=== PATIENT | female | born 1985 | race Caucasian/White ===

== ENCOUNTER 2017-07-31 20:41 | Emergency (ER) | payer MEDICAID ==
[2017-07-31] MEDS ORDERED: Sodium Chloride 0.9% 1,000 ML IV ONE (20:57)
[2017-07-31] MEDS ORDERED: Ondansetron 4 MG/2 ML SDV IVPUSH ONE (20:58)
[2017-07-31] MEDS ORDERED: Ketorolac 30 MG/ML SDV IVPUSH ONE (21:22)
[2017-07-31] MEDS ORDERED: Dextrose 5%-Lactated Ringers 1,000 ML IV SCH (22:30)
[2017-08-01 04:44] VITALS: BP 118/86
--- NOTE | 2017-08-02 10:24 | ER ---
DATE SEEN: 07/31/2017 TIME SEEN: The patient was seen at 2047 hours. HISTORY OF PRESENT ILLNESS: This 32-year-old, 4, para 4-0-0-4 woman, comes in with onset of abdominal pain, this was so severe at 1800 hours, she stopped driving her car and paramedics picked her up and brought into the hospital. She has left lower quadrant discomfort. Last menstrual period indeterminate. She felt slightly dizzy, felt she could not carry on because of the abdominal pain. She had nausea. She was able to get up and get out of the vehicle. She denied fever, chills, vomiting, diarrhea, constipation. She had extensive alcohol "too much" last night, six to eight beers. She has a slight headache. No shortness of breath. No chest pain or irregular heartbeat. No nausea, vomiting, diarrhea, constipation, change in bowels. No difficulty passing urine. No muscle aches. No previous history of seizure disorder. PAST MEDICAL HISTORY: None. PAST SURGICAL HISTORY: None. ALLERGIES: Sulfa. MEDICATIONS: None. PHYSICAL EXAMINATION: CONSTITUTIONAL: The patient is appropriately dressed. No shortness of breath. No anxiety. Apprehensive. She does not look like she is having much distress. HEENT: PERRLA intact. Eyegrounds normal. Pharynx has semi-dry mucosa. Nares negative. NECK: No cervical adenopathy or thyromegaly. No neck stiffness. LUNGS: Clear to auscultation without rales, rhonchi, or wheezes. HEART: S1, S2. No murmur. ABDOMEN: Soft. No guarding. No abdominal discomfort. Moderate left flank discomfort with percussion. No spinous process tenderness. No inguinal abnormalities. No hernia noted. PELVIC: Not performed. EXTREMITIES: Lower extremities without edema. Deep tendon reflexes normal. Upper extremities and lower extremity strength normal and intact. NEURO: Cranial nerves 2 through 12 intact. IMAGING: CAT scan was negative for abnormality. She has an IUD in utero. No obstructive stones, hydronephrosis, or perinephric edema. No small bowel or colonic obstruction. IUD is within the uterus. Normal CAT scan. LABORATORY DATA: Laboratory values are all normal. White count is 9000 with PMNs 62, lymphocytes 24, monos 6, and eosinophils 6, platelets 221,000, hemoglobin 13.7. Automated chemistry is normal with slight dehydration. BUN and creatinine ratio 25, creatinine 0.6, BUN 15, and also glucose stress reaction slight elevation 138. Urinalysis normal with few bacteria and few rbc's. Negative test. ASSESSMENT: Abdominal pain. PLAN: The patient reassured. No evidence for torsion of the ovary. No evidence for ovarian mass or ruptured cyst or renal stone or perforation or bowel obstruction. The patient to gradually progressively increase diet as tolerated. She received a liter of normal saline and a liter of D5 lactated Ringer's and felt better, sent home. Follow up with doctor as needed, otherwise return in 7 to 10 days. Use plain ibuprofen/Tylenol for pain and discomfort. The patient's pain presently is gone. /[id number] SENA/MALACHI
== END 2017-07-31 23:29 | disposition home or self-care (01) ==
LOC: FB.ED 20:41
DX: R10.32 Left lower quadrant pain (principal); Z88.2 Allergy status to sulfonamides
CPT/HCPCS: 36415; 74176; 80053; 81001; 81025; 85025; 96361; 96374; 96375; 99284; J1885; J2405; J7040; J7042

== ENCOUNTER 2017-10-10 02:40 | Emergency (ER) | payer MEDICAID ==
[2017-10-10] MEDS ORDERED: Ketorolac 60 MG/2 ML SDV IM ONE (02:52)
[2017-10-10 03:44] VITALS: BP 129/86
--- NOTE | 2017-10-10 04:08 | EDM.PDOC ---
ED HPI GENERAL MEDICAL PROBLEM - General Chief Complaint: Chest Pain Stated Complaint: CHEST PAIN Time Seen by Provider: 10/10/17 03:43 Source of Information: Reports: Patient History Limitations: Reports: No Limitations - History of Present Illness INITIAL COMMENTS - FREE TEXT/NARRATIVE: 32 y.o.w.f came to the ed due to r shoulder pain and feeling dehydrated 1 day after drinking ETOH heavily. Pt stated, last time when she drank, she came to the ed and received NS and she felt better. Pt stated she is able to keep water down. Pt denied sleeping at her r should. She just work up with severe pain and thought she will . No trauma, no other acute medical issues. BP 129/86 pulse 78 RR 14 Pulse ox 98% temp 37.2 Onset Date: 10/08/17 Onset Time: 07:00 Duration: Day(s): Location: Reports: Abdomen, Upper Extremity, Right Quality: Reports: Ache, Dull, Same as Previous Episode Severity: Mild Improves with: Reports: Rest Worsens with: Reports: Movement Context: Reports: Other (was drinking yesterday, today r shoulder pain) Associated Symptoms: Reports: No Other Symptoms Right Chest Pain Score (Numeric/FACES): 6 Right Shoulder Pain Score (Numeric/FACES): 6 Abdomen Pain Score (Numeric/FACES): 6 - Related Data Allergies Allergy/AdvReac Type Severity Reaction Status Date / Time Sulfa (Sulfonamide Allergy Cannot Verified 10/10/17 03:39 Antibiotics) Remember Home Meds: Home Meds Ondansetron [Zofran ODT] 8 mg PO Q6H PRN #20 tab.dis 10/10/17 [Rx] 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: Neurological History: Reports: Concussion, Headaches, Chronic, Head Trauma Other Neuro History: 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 Psychiatric History: Reports: Addiction, Anxiety, Depression, Emotional Problems , PTSD, Other (See Below) - Past Surgical History HEENT Surgical History: Reports: Tonsillectomy Social & Family History - Family History Family Medical History: Noncontributory - Tobacco Use Smoking Status *Q: Current Every Day Smoker Years of Tobacco use: 3 Packs/Tins Daily: 0.5 Second Hand Smoke Exposure: Yes - Caffeine Use Caffeine Use: Reports: Coffee, Soda - Alcohol Use Days Per Week of Alcohol Use: 5 Number of Drinks Per Day: 3 Total Drinks Per Week: 15 - Recreational Drug Use Recreational Drug Use: No Recreational Drug Type: Reports: Methamphetamine ED ROS GENERAL - Review of Systems Review Of Systems: See Below Constitutional: Reports: No Symptoms HEENT: Reports: No Symptoms Respiratory: Reports: No Symptoms Cardiovascular: Reports: No Symptoms Endocrine: Reports: No Symptoms GI/Abdominal: Reports: No Symptoms : Reports: No Symptoms Musculoskeletal: Reports: No Symptoms Skin: Reports: No Symptoms Neurological: Reports: No Symptoms Psychiatric: Reports: No Symptoms Hematologic/Lymphatic: Reports: No Symptoms Immunologic: Reports: No Symptoms ED EXAM, GENERAL - Physical Exam Exam: See Below Exam Limited By: No Limitations General Appearance: Alert, WD/WN, Mild Distress Eye Exam: Bilateral Eye: Normal Inspection Ears: Normal External Exam Ear Exam: Bilateral Ear: Auricle Normal Nose: Normal Inspection, Normal Mucosa, No Blood Throat/Mouth: Normal Inspection, Normal Lips Head: Atraumatic, Normocephalic Neck: Normal Inspection, Supple, Non-Tender, Full Range of Motion Respiratory/Chest: No Respiratory Distress, Lungs Clear, Normal Breath Sounds Cardiovascular: Normal Peripheral Pulses, Regular Rate, Rhythm, No Edema GI/Abdominal: Normal Bowel Sounds, Tender (minor epigastric tenderness) (Female) Exam: Deferred Rectal (Female) Exam: Deferred Back Exam: Normal Inspection, Full Range of Motion Extremities: Normal Inspection, Normal Range of Motion, Non-Tender Neurological: Alert, Oriented, CN II-XII Intact, Normal Cognition, Normal Gait Psychiatric: Normal Affect, Normal Mood Skin Exam: Warm, Dry, Intact, Normal Color, No Rash Lymphatic: No Adenopathy EKG INTERPRETATION EKG Date: 10/10/17 Time: 02:50 Rhythm: NSR Rate (Beats/Min): 77 [place]: Normal P-Wave: Present QRS: Normal ST-T: Normal QT: Normal Comparison: NA - No Prior EKG Course - Vital Signs Text/Narrative:: 32 y.o.w.f came to the ed due to r shoulder pain and feeling dehydrated 1 day after drinking ETOH heavily. Pt stated, last time when she drank, she came to the ed and received NS and she felt better. Pt stated she is able to keep water down. Pt denied sleeping at her r should. She just work up with severe pain and thought she will . No trauma, no other acute medical issues. BP 129/86 pulse 78 RR 14 Pulse ox 98% temp 37.2 PE: WNWD WF NAD, mild epig. tenderness, FROM of right shoulder. Imaging: Left shoulder: NAD Impression: R shoulder sprain and mild ETOH gasytritis TX; Zofran Reexam: Pt was able to keep water down. Plan: D/C with instructions Last Recorded V/S: Last Vital Signs Temp 37.2 C 10/10/17 03:43 Pulse 86 10/10/17 03:43 Resp 14 10/10/17 03:43 BP 129/86 10/10/17 03:43 Pulse Ox 98 10/10/17 03:43 - Orders/Labs/Meds Orders: Active Orders 24 hr Category Date Time Status EKG Documentation Completion [RC] ASDIRECTED Care 10/10/17 03:47 Active Shoulder 1V Rt [CR] Stat Exams 10/10/17 03:20 Taken EKG 12 Lead [EK] Routine Ther 10/10/17 03:47 Ordered Meds: Medications Discontinued Medications Generic Name Dose Route Start Last Admin Trade Name Freq PRN Reason Stop Dose Admin Ketorolac Tromethamine 60 mg 10/10/17 02:52 10/10/17 03:46 Toradol IM 10/10/17 02:53 60 mg ONETIME ONE Administration Ondansetron HCl 8 mg 10/10/17 04:09 10/10/17 04:12 Zofran Odt PO 10/10/17 04:10 8 mg ONETIME ONE Administration Departure - Departure Time of Disposition: 04:06 Disposition: Home, Self-Care 01 Condition: Good Clinical Impression: H/O ETOH abuse Shoulder sprain Qualifiers: Encounter type: initial encounter Shoulder sprain type: unspecified sprain Laterality: right Qualified Code(s): S43.401A - Unspecified sprain of right shoulder joint, initial encounter Prescriptions: Ondansetron [Zofran ODT] 8 mg PO Q6H PRN #20 tab.dis PRN Reason: for nausea and vomiting Referrals: PCP,None [Primary Care Provider] - Forms: ED Department Discharge Additional Instructions: Please advance diet as toerated, please take zofran for nausea and vomiting. Please no ETOH, please f/u, come back if your symptoms get worse acutely - My Orders Last 24 Hours: My Active Orders 10/10/17 03:20 Shoulder 1V Rt [CR] Stat 10/10/17 03:47 EKG Documentation Completion [RC] ASDIRECTED EKG 12 Lead [EK] Routine - Assessment/Plan Last 24 Hours: My Active Orders 10/10/17 03:20 Shoulder 1V Rt [CR] Stat 10/10/17 03:47 EKG Documentation Completion [RC] ASDIRECTED EKG 12 Lead [EK] Routine
[2017-10-10] MEDS ORDERED: Ondansetron 8 MG Tab.DIS PO ONE (04:09)
--- NOTE | 2017-10-10 10:35 | CR ---
INDICATION: Right shoulder pain. RIGHT SHOULDER: Three views of the right shoulder revealed slight cranial offset of the distal clavicle with respect to the acromion, suggesting the possibility of a grade 1 AC joint strain. This should be correlated clinically. No other bone or joint abnormality was identified - no acute fracture site was seen. IMPRESSION: Findings suggest a grade 1 AC joint separation on the right. Views of both AC joints without and with weights may be helpful for further evaluation, as felt to be clinically necessary. ISAURAD
== END 2017-10-10 04:30 | disposition home or self-care (01) ==
LOC: FB.ED 02:40
DX: S43.401A Unspecified sprain of right shoulder joint, initial encounter (principal); K29.20 Alcoholic gastritis without bleeding; F10.10 Alcohol abuse, uncomplicated; F17.210 Nicotine dependence, cigarettes, uncomplicated; Z88.2 Allergy status to sulfonamides; X58.XXXA Exposure to other specified factors, initial encounter
CPT/HCPCS: 73030; 93005; 96372; 99284; A9270; J1885

== ENCOUNTER 2018-01-20 07:51 | Emergency (ER) | payer MEDICAID ==
--- NOTE | 2018-01-20 10:20 | EDM.PDOC ---
ED HPI GENERAL MEDICAL PROBLEM - General Chief Complaint: Upper Extremity Injury/Pain Stated Complaint: NUMBNESS,TINGLING,WEAKNESS Time Seen by Provider: 01/20/18 07:51 Source of Information: Reports: Patient, Family (boyfriend) History Limitations: Reports: No Limitations - History of Present Illness INITIAL COMMENTS - FREE TEXT/NARRATIVE: 32 y.o.w.f came to the ed with her SO due to left forearm numbness when she woke up this morning. Pt denies trauma. She has a h/O ETOH abuse but denies sleeping on her left arm. No N/V/D Pt says she feels dizzy at time. Pt was seen for that on 10/31/2017 at [place] and twice by Dr. Guardado in October. Pt stated, she had 2 stenst placed in her heart at age 18 at [facility]. No other acute medical Issues. BP 146/102 RR 20 Pulse 83 Pulse ox not done by nurse. Temp 36.8 Onset: Today Onset Date: 01/20/18 Onset Time: 07:00 Duration: Minutes: Location: Reports: Upper Extremity, Left Quality: Reports: Other (numb) Severity: Mild Improves with: Reports: None Worsens with: Reports: None Associated Symptoms: Reports: No Other Symptoms Left Posterior Back Pain Score (Numeric/FACES): 5 - Related Data Allergies Allergy/AdvReac Type Severity Reaction Status Date / Time Sulfa (Sulfonamide Allergy Cannot Verified 01/20/18 08:30 Antibiotics) Remember Home Meds: Home Meds PARoxetine HCl [Paxil] 20 mg PO DAILY 01/20/18 [History] hydrOXYzine HCl [Atarax] 25 mg PO QID 01/20/18 [History] 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: Neurological History: Reports: Concussion, Headaches, Chronic, Head Trauma Other Neuro History: 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 Psychiatric History: Reports: Addiction, Anxiety, Depression, Emotional Problems , PTSD, Other (See Below) - Past Surgical History HEENT Surgical History: Reports: Tonsillectomy Social & Family History - Family History Family Medical History: Noncontributory - Tobacco Use Smoking Status *Q: Current Every Day Smoker Years of Tobacco use: 3 Packs/Tins Daily: 0.5 Second Hand Smoke Exposure: Yes - Caffeine Use Caffeine Use: Reports: Coffee, Soda - Alcohol Use Days Per Week of Alcohol Use: 5 Number of Drinks Per Day: 3 Total Drinks Per Week: 15 - Recreational Drug Use Recreational Drug Use: No Recreational Drug Type: Reports: Methamphetamine Review of Systems - Review of Systems Review Of Systems: See Below Constitutional: Reports: No Symptoms Eyes: Reports: No Symptoms Ears: Reports: No Symptoms Nose: Reports: No Symptoms Mouth/Throat: Reports: No Symptoms Respiratory: Reports: No Symptoms Cardiovascular: Reports: No Symptoms (said she had cardiac stenst placed with age 18 at [facility]) GI/Abdominal: Reports: No Symptoms Genitourinary: Reports: No Symptoms Musculoskeletal: Reports: No Symptoms Skin: Reports: No Symptoms Neurological: Reports: Dizziness, Numbness (left forearm), Paresthesia (left forearm) Psychiatric: Reports: No Symptoms ED EXAM, GENERAL - Physical Exam Exam: See Below Exam Limited By: No Limitations General Appearance: Alert, WD/WN, No Apparent Distress Eye Exam: Bilateral Eye: Normal Inspection Ear Exam: Bilateral Ear: Auricle Normal Nose: Normal Inspection, Normal Mucosa Throat/Mouth: Normal Inspection, Normal Lips Head: Atraumatic, Normocephalic Neck: Normal Inspection, Supple, Non-Tender, Full Range of Motion Respiratory/Chest: No Respiratory Distress, Lungs Clear, Normal Breath Sounds, No Accessory Muscle Use, Chest Non-Tender Cardiovascular: Normal Peripheral Pulses, Regular Rate, Rhythm, No Edema, No Gallop, No Murmur, No Rub Peripheral Pulses: 1+: Brachial (R) GI/Abdominal: Normal Bowel Sounds, Soft, Non-Tender, No Organomegaly, No Distention, No Abnormal Bruit, No Mass (Female) Exam: Deferred Rectal (Female) Exam: Deferred Back Exam: Normal Inspection, Full Range of Motion Extremities: Normal Inspection, Normal Range of Motion, Non-Tender, No Pedal Edema, Normal Capillary Refill Neurological: Alert, Oriented, CN II-XII Intact, Normal Cognition, Normal Gait, No Motor/Sensory Deficits Psychiatric: Normal Affect, Normal Mood Skin Exam: Warm, Dry, Intact, Normal Color Course - Vital Signs Text/Narrative:: 32 y.o.w.f came to the ed with her SO due to left forearm numbness when she woke up this morning. Pt denies trauma. She has a h/O ETOH abuse but denies sleeping on her left arm. No N/V/D Pt says she feels dizzy at time. Pt was seen for that on 10/31/2017 at [place] and twice by Dr. Guardado in October. Pt stated, she had 2 stents placed in her heart at age 18 at [facility]. No other acute medical Issues. BP 146/102 RR 20 Pulse 83 Pulse ox not done by nurse. Temp 36.8 PE: WNWD W F with left forearm numbness, FROM, no pain Labs: CBC BMP and UA were neg, ETOH was neg Impression: Left arm numbness/Neuropraxia, Dizziness, H/O ETOH abuse, H/O anxiety Pt stated she had with age 18 stents in her heart placed at [facility]. I have spoken to [facility] records and received toe pt's D/C constantin from 06/16/2008, which did not mention ant kind of heart procedure. She was seen on 10/31/2017 at the [place] ED, and twice at Dr. Ribeiro's office in October 2017. Non of the records mentioned a heart issue. After the patient was informed about taht fact, she walked out of the ed. Plan: Pt left AMA from the ed Pulse ox not dawkins by nurse while pt was in the ed. Last Recorded V/S: Last Vital Signs Temp 36.5 C 01/20/18 07:51 Pulse 76 01/20/18 08:50 Resp 20 01/20/18 07:51 BP 142/96 H 01/20/18 08:50 Pulse Ox Orthostatic Blood Pressure [ 140/97 Standing] Orthostatic Blood Pressure [ 150/99 Sitting] Orthostatic Blood Pressure [ 140/93 Supine] - Orders/Labs/Meds Orders: Active Orders 24 hr Category Date Time Status UA W/MICROSCOPIC [URIN] Stat Lab 01/20/18 08:24 Ordered Labs: Laboratory Tests 01/20/18 01/20/18 01/20/18 Range/Units 08:24 08:24 08:24 WBC 6.7 (4.5-12.0) X10-3/uL RBC 4.25 (3.23-5.20) x10(6)uL Hgb 13.5 (11.5-15.5) g/dL Hct 39.9 (30.0-51.3) % MCV 94.0 (80-96) fL MCH 31.8 (27.7-33.6) pg MCHC 33.8 (32.2-35.4) g/dL RDW 13.3 (11.5-15.5) % Plt Count 214 (125-369) X10(3)uL MPV 8.7 (7.4-10.4) fL Neut % (Auto) 55.5 (46-82) % Lymph % (Auto) 33.7 (13-37) % [place] % (Auto) 5.3 (4-12) % Eos % (Auto) 5 (1.0-5.0) % Baso % (Auto) 1 (0-2) % Neut # (Auto) 3.7 (1.6-8.3) # Lymph # (Auto) 2.3 (0.6-5.0) # [place] # (Auto) 0.4 (0.0-1.3) # Eos # (Auto) 0.3 (0.0-0.8) # Baso # (Auto) 0.0 (0.0-0.2) # PT 10.0 (8.7-11.1) INR 0.99 (0.89-1.13) D-Dimer, Quantitative (100-400) ng/mL Sodium (135-145) mmol/L Potassium (3.5-5.3) mmol/L Chloride (100-110) mmol/L Carbon Dioxide (21-32) mmol/L BUN (7-18) mg/dL Creatinine (0.55-1.02) mg/dL Est Cr Clr Drug Dosing mL/min Estimated GFR (MDRD) (>60) BUN/Creatinine Ratio (9-20) Glucose (80-116) mg/dL Calcium (8.6-10.2) mg/dL Urine Color Yellow (YELLOW) Urine Appearance Clear (CLEAR) Urine pH 8.0 H (5.0-6.5) Ur Specific [place] 1.010 (1.010-1.025) Urine Protein Negative (NEGATIVE) mg/dL Urine Glucose (UA) Normal (NEGATIVE) mg/dL Urine Ketones Negative (NEGATIVE) mg/dL Urine Occult Blood Negative (NEGATIVE) Urine Nitrite Negative (NEGATIVE) Urine Bilirubin Negative (NEGATIVE) Urine Urobilinogen Normal (NEGATIVE) mg/dL Ur Leukocyte Esterase Negative (NEGATIVE) Urine RBC Not seen (0) Urine WBC 0-5 (0) Ur Squamous Epith Cells Occasional (NS,R,O) Urine Bacteria Not seen (NS) Ethyl Alcohol (<0.03) % 01/20/18 01/20/18 01/20/18 Range/Units 08:24 08:24 08:24 WBC (4.5-12.0) X10-3/uL RBC (3.23-5.20) x10(6)uL Hgb (11.5-15.5) g/dL Hct (30.0-51.3) % MCV (80-96) fL MCH (27.7-33.6) pg MCHC (32.2-35.4) g/dL RDW (11.5-15.5) % Plt Count (125-369) X10(3)uL MPV (7.4-10.4) fL Neut % (Auto) (46-82) % Lymph % (Auto) (13-37) % [place] % (Auto) (4-12) % Eos % (Auto) (1.0-5.0) % Baso % (Auto) (0-2) % Neut # (Auto) (1.6-8.3) # Lymph # (Auto) (0.6-5.0) # [place] # (Auto) (0.0-1.3) # Eos # (Auto) (0.0-0.8) # Baso # (Auto) (0.0-0.2) # PT (8.7-11.1) INR (0.89-1.13) D-Dimer, Quantitative < 100 L (100-400) ng/mL Sodium 139 (135-145) mmol/L Potassium 4.1 (3.5-5.3) mmol/L Chloride 101 (100-110) mmol/L Carbon Dioxide 28 (21-32) mmol/L BUN 13 (7-18) mg/dL Creatinine 0.7 (0.55-1.02) mg/dL Est Cr Clr Drug Dosing 86.26 mL/min Estimated GFR (MDRD) > 60 (>60) BUN/Creatinine Ratio 18.6 (9-20) Glucose 103 (80-116) mg/dL Calcium 9.1 (8.6-10.2) mg/dL Urine Color (YELLOW) Urine Appearance (CLEAR) Urine pH (5.0-6.5) Ur Specific [place] (1.010-1.025) Urine Protein (NEGATIVE) mg/dL Urine Glucose (UA) (NEGATIVE) mg/dL Urine Ketones (NEGATIVE) mg/dL Urine Occult Blood (NEGATIVE) Urine Nitrite (NEGATIVE) Urine Bilirubin (NEGATIVE) Urine Urobilinogen (NEGATIVE) mg/dL Ur Leukocyte Esterase (NEGATIVE) Urine RBC (0) Urine WBC (0) Ur Squamous Epith Cells (NS,R,O) Urine Bacteria (NS) Ethyl Alcohol < 0.03 (<0.03) % Departure - Departure Time of Disposition: 10:21 Disposition: Against Medical Advice 07 Condition: Good Clinical Impression: Arm numbness left - Discharge Information Referrals: PCP,None [Primary Care Provider] - Forms: ED Department Discharge - My Orders Last 24 Hours: My Active Orders 01/20/18 08:24 UA W/MICROSCOPIC [URIN] Stat - Assessment/Plan Last 24 Hours: My Active Orders 01/20/18 08:24 UA W/MICROSCOPIC [URIN] Stat
[2018-01-20 17:38] VITALS: BP 142/96
== END 2018-01-20 09:35 | disposition left against medical advice (07) ==
LOC: FB.ED 07:51
DX: R20.0 Anesthesia of skin (principal); R42 Dizziness and giddiness; F41.9 Anxiety disorder, unspecified; F32.9 Major depressive disorder, single episode, unspecified; F17.210 Nicotine dependence, cigarettes, uncomplicated; Z79.899 Other long term (current) drug therapy; Z88.2 Allergy status to sulfonamides
CPT/HCPCS: 36415; 80048; 81001; 85025; 85379; 85610; 99284; G0480

== ENCOUNTER 2020-09-16 08:44 | Emergency (ER) | payer SELFPAY ==
[2020-09-16] MEDS ORDERED: Sodium Chloride 0.9% 10 ML Syringe FLUSH PRN (08:47)
[2020-09-16] MEDS ORDERED: Ondansetron 4 MG/2 ML SDV IVPUSH ONE (09:22)
[2020-09-16] MEDS ORDERED: Morphine 4 MG/ML VIAL IVPUSH ONE (09:24)
[2020-09-16] MEDS ORDERED: Atropine/Diphenoxylate 0.025-2.5 MG Tab PO ONE (09:28)
[2020-09-16] MEDS ORDERED: Ketorolac 30 MG/ML SDV IVPUSH ONE (09:28)
[2020-09-16] MEDS ORDERED: Sodium Chloride 0.9% 1,000 ML IV SCH ×2 (09:30)
--- NOTE | 2020-09-16 11:31 | EDM.PDOC ---
ED HPI GENERAL MEDICAL PROBLEM - General Chief Complaint: Abdominal Pain Stated Complaint: ABDOMINAL PAIN Time Seen by Provider: 09/16/20 09:15 Source of Information: Reports: Patient History Limitations: Reports: No Limitations - History of Present Illness INITIAL COMMENTS - FREE TEXT/NARRATIVE: Patient presented to the ED from the [facility] because of N/V/D and abdominal pain for 3 days. There is no associated fever, chills, cough/cold or dyspnea. She was seen in the clinic yesterday and labs ar normal except for mild increase in wbc and CT abd/isabela-consistent with colitis due to gastroenteritis. 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 Psychiatric History: Reports: Addiction, Anxiety, Depression, Emotional Problems, PTSD, Other (See Below) - Infectious Disease History Infectious Disease History: Reports: Chicken Pox - Past Surgical History HEENT Surgical History: Reports: Tonsillectomy Social & Family History - Family History Family Medical History: No Pertinent Family History - Tobacco Use Tobacco Use Status *Q: Never Tobacco User Second Hand Smoke Exposure: No - Caffeine Use Caffeine Use: Reports: None - Alcohol Use Days Per Week of Alcohol Use: 3 Number of Drinks Per Day: 10 Total Drinks Per Week: 30 - Recreational Drug Use Recreational Drug Use: No ED ROS GENERAL - Review of Systems Review Of Systems: See Below Constitutional: Reports: No Symptoms HEENT: Reports: No Symptoms Respiratory: Reports: No Symptoms Cardiovascular: Reports: No Symptoms Endocrine: Reports: No Symptoms GI/Abdominal: Reports: Abdominal Pain, Diarrhea, Nausea, Vomiting : Reports: No Symptoms, Discharge, Dysuria Musculoskeletal: Reports: No Symptoms, Neck Pain, Shoulder Pain Skin: Reports: No Symptoms, Cyanosis Neurological: Reports: No Symptoms ED EXAM, GENERAL - Physical Exam Exam: See Below Exam Limited By: No Limitations General Appearance: Alert, No Apparent Distress Eye Exam: Bilateral Eye: PERRL Ears: Normal External Exam, Normal Canal Nose: Normal Inspection, Normal Mucosa Throat/Mouth: Normal Inspection, Normal Lips Head: Atraumatic, Normocephalic Neck: Normal Inspection, Supple, Full Range of Motion Respiratory/Chest: No Respiratory Distress, Lungs Clear, Normal Breath Sounds, No Accessory Muscle Use, Chest Non-Tender Cardiovascular: Normal Peripheral Pulses, Regular Rate, Rhythm, No Edema, No Gallop GI/Abdominal: Soft, No Organomegaly, Other (hyperactivee bowel sound. Tenderness over the RLQ/LLQ and suprapubic area.) Course - Vital Signs Text/Narrative:: Labs reviewed with patient NS 1 L bolus Zofran 4 mg IV x1 Lomotil 2 tabs po x1 Toradol 30 mg IV x1 Morphine 4 mg IV x1 Surgical consult with Dr Tamez, he doesn't think that it's a surgical abdomen and want patient to be started on antibiotic and and follow up with him this coming week. Last Recorded V/S: Last Vital Signs Temp 36.7 C 09/16/20 09:14 Pulse 58 L 09/16/20 11:42 Resp 18 09/16/20 11:42 BP 133/74 09/16/20 11:42 Pulse Ox 100 09/16/20 11:42 - Orders/Labs/Meds Orders: Active Orders 24 hr Category Date Time Status CULTURE URINE [RM] Stat Lab 09/16/20 09:21 Received Saline Lock Insert [OM.PC] Routine Oth 09/16/20 08:47 Ordered Labs: Laboratory Tests 09/16/20 09/16/20 09/16/20 Range/Units 09:21 09:50 09:55 WBC 11.8 H (3.0-10.3) x10-3/uL RBC 4.11 (3.60-5.20) x10(6)uL Hgb 13.2 (11.4-15.5) g/dL Hct 40.2 (34.2-48.2) % MCV 97.8 (76.7-100.5) fL MCH 32.0 (23.9-33.9) pg MCHC 32.7 (31.9-34.8) g/dL RDW 13.8 (12.3-16.5) % Plt Count 231 (151-488) x10(3)uL MPV 9.1 (7.1-12.4) fL Neut % (Auto) 81.8 H (30.8-76.2) % Lymph % (Auto) 13.0 L (18.4-52.1) % [place] % (Auto) 4.2 L (4.4-15.7) % Eos % (Auto) 0.8 (0.6-8.1) % Baso % (Auto) 0.2 (0.2-1.5) % Neut # (Auto) 9.7 H (1.5-6.3) x10-3/uL Lymph # (Auto) 1.5 (1.0-4.4) x10-3/uL [place] # (Auto) 0.5 (0.3-1.0) x10-3/uL Eos # (Auto) 0.1 (0.0-0.8) x10-3/uL Baso # (Auto) 0.0 (0.0-0.1) x10-3/uL Sodium (135-145) mmol/L Potassium (3.5-5.3) mmol/L Chloride (100-110) mmol/L Carbon Dioxide (21-32) mmol/L BUN (7-18) mg/dL Creatinine (0.55-1.02) mg/dL Est Cr Clr Drug Dosing mL/min Estimated GFR (MDRD) (>60) BUN/Creatinine Ratio (9-20) Glucose (80-116) mg/dL Calcium (8.6-10.2) mg/dL Total Bilirubin (0.1-1.3) mg/dL AST (5-25) IU/L ALT (12-36) U/L Alkaline Phosphatase (56-112) IU/L Total Protein (6.0-8.0) g/dL Albumin (3.5-5.2) g/dL Globulin g/dL Albumin/Globulin Ratio Amylase (25-115) U/L Lipase (73-393) U/L Urine Color Yellow (YELLOW) Urine Appearance Cloudy (CLEAR) Urine pH 5.0 (5.0-6.5) Ur Specific [place] 1.025 (1.010-1.025) Urine Protein 30 H (NEGATIVE) mg/dL Urine Glucose (UA) 50 H (NORMAL) mg/dL Urine Ketones 15 H (NEGATIVE) mg/dL Urine Occult Blood Large H (NEGATIVE) Urine Nitrite Negative (NEGATIVE) Urine Bilirubin Small H (NEGATIVE) Urine Urobilinogen 4 H (NEGATIVE) mg/dL Ur Leukocyte Esterase Large H (NEGATIVE) Urine RBC 10-20 H (0-5) Urine WBC 30-40 H (0-5) Ur Squamous Epith Cells Moderate H (NS,R,O) Urine Bacteria Many H (NS) SARS-CoV-2 RNA (OANH) Negative (NEGATIVE) 09/16/20 09/16/20 Range/Units 09:55 09:55 WBC (3.0-10.3) x10-3/uL RBC (3.60-5.20) x10(6)uL Hgb (11.4-15.5) g/dL Hct (34.2-48.2) % MCV (76.7-100.5) fL MCH (23.9-33.9) pg MCHC (31.9-34.8) g/dL RDW (12.3-16.5) % Plt Count (151-488) x10(3)uL MPV (7.1-12.4) fL Neut % (Auto) (30.8-76.2) % Lymph % (Auto) (18.4-52.1) % [place] % (Auto) (4.4-15.7) % Eos % (Auto) (0.6-8.1) % Baso % (Auto) (0.2-1.5) % Neut # (Auto) (1.5-6.3) x10-3/uL Lymph # (Auto) (1.0-4.4) x10-3/uL [place] # (Auto) (0.3-1.0) x10-3/uL Eos # (Auto) (0.0-0.8) x10-3/uL Baso # (Auto) (0.0-0.1) x10-3/uL Sodium 135 (135-145) mmol/L Potassium 3.5 (3.5-5.3) mmol/L Chloride 96 L D (100-110) mmol/L Carbon Dioxide 29 (21-32) mmol/L BUN 9 (7-18) mg/dL Creatinine 1.0 (0.55-1.02) mg/dL Est Cr Clr Drug Dosing 61.51 mL/min Estimated GFR (MDRD) > 60 (>60) BUN/Creatinine Ratio 9.0 (9-20) Glucose 107 (80-116) mg/dL Calcium 9.2 (8.6-10.2) mg/dL Total Bilirubin 1.5 H (0.1-1.3) mg/dL AST 15 (5-25) IU/L ALT 18 (12-36) U/L Alkaline Phosphatase 54 L (56-112) IU/L Total Protein 8.7 H (6.0-8.0) g/dL Albumin 3.3 L (3.5-5.2) g/dL Globulin 5.4 g/dL Albumin/Globulin Ratio 0.6 Amylase 241 H (25-115) U/L Lipase 55 L (73-393) U/L Urine Color (YELLOW) Urine Appearance (CLEAR) Urine pH (5.0-6.5) Ur Specific [place] (1.010-1.025) Urine Protein (NEGATIVE) mg/dL Urine Glucose (UA) (NORMAL) mg/dL Urine Ketones (NEGATIVE) mg/dL Urine Occult Blood (NEGATIVE) Urine Nitrite (NEGATIVE) Urine Bilirubin (NEGATIVE) Urine Urobilinogen (NEGATIVE) mg/dL Ur Leukocyte Esterase (NEGATIVE) Urine RBC (0-5) Urine WBC (0-5) Ur Squamous Epith Cells (NS,R,O) Urine Bacteria (NS) SARS-CoV-2 RNA (OANH) (NEGATIVE) Meds: Medications Discontinued Medications Generic Name Dose Route Start Last Admin Trade Name Freq PRN Reason Stop Dose Admin Diphenoxylate HCl/Atropine 2 tab 09/16/20 09:28 09/16/20 09:46 Lomotil 0.025-2.5 Mg PO 09/16/20 09:29 2 tab ONETIME ONE Administration Sodium Chloride 1,000 mls @ 999 mls/hr 09/16/20 09:30 09/16/20 09:47 Normal Saline IV 999 mls/hr ASDIRECTED FRANCIE Administration Sodium Chloride 1,000 mls @ 999 mls/hr 09/16/20 09:30 09/16/20 11:09 Normal Saline IV 999 mls/hr ASDIRECTED FRANCIE Administration Ketorolac Tromethamine 30 mg 09/16/20 09:28 09/16/20 09:46 Toradol IVPUSH 09/16/20 09:29 30 mg ONETIME ONE Administration Morphine Sulfate 4 mg 09/16/20 09:24 Morphine IVPUSH 09/16/20 09:25 ONETIME ONE Ondansetron HCl 4 mg 09/16/20 09:22 09/16/20 09:46 Zofran IVPUSH 09/16/20 09:23 4 mg ONETIME ONE Administration Sodium Chloride 10 ml 09/16/20 08:47 Saline Flush FLUSH ASDIRECTED PRN Keep Vein Open Departure - Departure Time of Disposition: 11:25 Disposition: Home, Self-Care 01 Condition: Good Clinical Impression: Gastroenteritis, Colitis - Discharge Information Instructions: Diarrhea, Adult, Colitis Referrals: Tristan Price MD [Primary Care Provider] - Forms: ED Department Discharge Additional Instructions: please read discharge instructions on colitis and gastroenteritis frequent hand washing increase fluids-2 to 3 liters a day metronidazole 500 mg 3 times daily for 10 days cipro 500 mg 2 times daily for 10 days imodium 2 tablets every 6 hours as needed for diarrhea call [facility] and schedule an appointment to see Dr Tamez(surgeon) this coming week Sepsis Event Note (ED) - Evaluation Sepsis Screening Result: No Definite Risk - Focused Exam Vital Signs: Vital Signs Temp Pulse Resp BP Pulse Ox 09/16/20 11:42 58 L 18 133/74 100 09/16/20 10:00 57 L 18 138/79 100 09/16/20 09:14 36.7 C 80 18 143/77 H 96 - My Orders Last 24 Hours: My Active Orders 09/16/20 08:47 Saline Lock Insert [OM.PC] Routine 09/16/20 09:21 CULTURE URINE [RM] Stat - Assessment/Plan Last 24 Hours: My Active Orders 09/16/20 08:47 Saline Lock Insert [OM.PC] Routine 09/16/20 09:21 CULTURE URINE [RM] Stat
[2020-09-16 11:57] VITALS: BP 133/74; PULSE 58
== END 2020-09-16 11:48 | disposition home or self-care (01) ==
LOC: FB.ED 08:44
DX: K52.9 Noninfective gastroenteritis and colitis, unspecified (principal); Z88.2 Allergy status to sulfonamides; Z20.828 Contact with and (suspected) exposure to other viral communicable diseases
CPT/HCPCS: 36415; 80053; 81001; 82150; 83690; 85025; 87086; 87088; 87186; 96374; 96375; 99284-25; A9270-GY; J1885; J2405; J7030; U0002

== ENCOUNTER 2021-06-01 07:15 | Emergency (ER) | payer MEDICAID ==
[2021-06-01] MEDS ORDERED: Ondansetron 4 MG/2 ML SDV IVPUSH ONE (07:31)
[2021-06-01] MEDS ORDERED: Sodium Chloride 0.9% 1,000 ML IV ONE (07:32)
[2021-06-01] MEDS ORDERED: Morphine 2 MG/ML SYRINGE IVPUSH ONE (07:33)
[2021-06-01] MEDS ORDERED: Pantoprazole 40 MG Vial IVPUSH ONE (07:33)
[2021-06-01] MEDS ORDERED: Sodium Chloride 0.9% 10 ML Syringe FLUSH PRN (07:33)
[2021-06-01] MEDS ORDERED: Iopamidol 755 Mg/ML 75 ML Bottle IV ONE (09:08)
--- NOTE | 2021-06-01 10:29 | EDM.PDOC ---
ED HPI GENERAL MEDICAL PROBLEM - General Chief Complaint: Abdominal Pain Stated Complaint: THROWING UP BLOOD Time Seen by Provider: 06/01/21 07:35 Source of Information: Reports: Patient History Limitations: Reports: No Limitations - History of Present Illness INITIAL COMMENTS - FREE TEXT/NARRATIVE: Patient presented to the ED because of coffee ground emesis, epigastric pain, n ausea and vomiting which started at 1930 yesterday. She said she has several nausea and vomiting but no melanotic stools or hematochezia. she has a history of alcohol abuse and drinks 5-6 bottles of beer daily. 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 Psychiatric History: Reports: Addiction, Anxiety, Depression, Emotional Problems, PTSD, Other (See Below) - Infectious Disease History Infectious Disease History: Reports: Chicken Pox - Past Surgical History HEENT Surgical History: Reports: Tonsillectomy Social & Family History - Family History Family Medical History: No Pertinent Family History - Caffeine Use Caffeine Use: Reports: None ED ROS GENERAL - Review of Systems Review Of Systems: See Below Constitutional: Reports: No Symptoms HEENT: Reports: No Symptoms Respiratory: Reports: No Symptoms Cardiovascular: Reports: No Symptoms Endocrine: Reports: No Symptoms GI/Abdominal: Reports: Abdominal Pain, Nausea, Vomiting : Reports: No Symptoms Musculoskeletal: Reports: No Symptoms Skin: Reports: No Symptoms Neurological: Reports: No Symptoms Psychiatric: Reports: No Symptoms ED EXAM, GI/ABD - Physical Exam Exam: See Below Exam Limited By: No Limitations General Appearance: Alert, No Apparent Distress Ears: Normal External Exam, Normal Canal Nose: Normal Inspection, Normal Mucosa, No Blood Throat/Mouth: Normal Inspection, Normal Lips, Normal Teeth Head: Atraumatic, Normocephalic Neck: Normal Inspection, Supple, Non-Tender, Full Range of Motion Respiratory/Chest: No Respiratory Distress, Lungs Clear, Normal Breath Sounds, No Accessory Muscle Use, Chest Non-Tender Cardiovascular: Normal Peripheral Pulses, Regular Rate, Rhythm, No Edema, No Gallop, No JVD, No Murmur, No Rub GI/Abdominal Exam: Normal Bowel Sounds, Soft, No Organomegaly, No Distention, No Abnormal Bruit, Other (epigastric tenderness) Rectal (Female) Exam: Normal Exam Back Exam: Normal Inspection, Full Range of Motion Extremities: Normal Inspection Neurological: Alert, Oriented, CN II-XII Intact Psychiatric: Normal Affect, Normal Mood Course - Vital Signs Text/Narrative:: Lab/abd-pelvis CT result was reviewed and discussed with patient NS 1 L bolus Zofran 4 mg IV x1 Protonix 80 mg IV x1 Morphine 2 mg IV x1 Last Recorded V/S: Last Vital Signs Temp 36.8 C 06/01/21 10:35 Pulse 82 06/01/21 10:35 Resp 20 06/01/21 10:35 BP 135/74 06/01/21 10:35 Pulse Ox 98 06/01/21 10:35 - Orders/Labs/Meds Orders: Active Orders 24 hr Category Date Time Status Abdomen Pelvis w Cont [CT] Stat Exams 06/01/21 08:40 Taken Peripheral IV Insertion Adult [OM.PC] Routine Oth 06/01/21 07:33 Ordered Labs: Laboratory Tests 06/01/21 06/01/21 06/01/21 Range/Units 07:42 07:42 07:42 WBC 6.2 (3.0-10.3) x10-3/uL RBC 4.52 (3.60-5.20) x10(6)uL Hgb 14.5 (11.4-15.5) g/dL Hct 43.4 (34.2-48.2) % MCV 96.1 (76.7-100.5) fL MCH 32.2 (23.9-33.9) pg MCHC 33.5 (31.9-34.8) g/dL RDW 13.0 (12.3-16.5) % Plt Count 233 (151-488) x10(3)uL MPV 8.0 (7.1-12.4) fL Neut % (Auto) 38.6 (30.8-76.2) % Lymph % (Auto) 50.5 (18.4-52.1) % [place] % (Auto) 6.0 (4.4-15.7) % Eos % (Auto) 3.9 (0.6-8.1) % Baso % (Auto) 1.0 (0.2-1.5) % Neut # (Auto) 2.4 (1.5-6.3) x10-3/uL Lymph # (Auto) 3.1 (1.0-4.4) x10-3/uL [place] # (Auto) 0.4 (0.3-1.0) x10-3/uL Eos # (Auto) 0.2 (0.0-0.8) x10-3/uL Baso # (Auto) 0.1 (0.0-0.1) x10-3/uL PT 11.5 H (9.0-11.1) sec INR 1.06 (1.00-1.24) Sodium 138 (135-145) mmol/L Potassium 3.7 (3.5-5.3) mmol/L Chloride 102 D (100-110) mmol/L Carbon Dioxide 24 (21-32) mmol/L BUN 16 (7-18) mg/dL Creatinine 0.9 (0.55-1.02) mg/dL Est Cr Clr Drug Dosing TNP Estimated GFR (MDRD) > 60 (>60) BUN/Creatinine Ratio 17.8 (9-20) Glucose 97 (80-116) mg/dL Calcium 8.5 L (8.6-10.2) mg/dL Total Bilirubin 1.4 H (0.1-1.3) mg/dL AST 61 H D (5-25) IU/L ALT 39 H D (12-36) U/L Alkaline Phosphatase 55 L (56-112) IU/L Total Protein 7.6 (6.0-8.0) g/dL Albumin 3.6 (3.5-5.2) g/dL Globulin 4.0 g/dL Albumin/Globulin Ratio 0.9 Amylase 293 H (25-115) U/L Lipase (73-393) U/L Urine Color (YELLOW) Urine Appearance (CLEAR) Urine pH (5.0-6.5) Ur Specific [place] (1.010-1.025) Urine Protein (NEGATIVE) mg/dL Urine Glucose (UA) (NORMAL) mg/dL Urine Ketones (NEGATIVE) mg/dL Urine Occult Blood (NEGATIVE) Urine Nitrite (NEGATIVE) Urine Bilirubin (NEGATIVE) Urine Urobilinogen (NEGATIVE) mg/dL Ur Leukocyte Esterase (NEGATIVE) U Hyaline Cast (Auto) (NS) Urine RBC (0-5) Urine WBC (0-5) Ur Squamous Epith Cells (NS,R,O) Urine Mucus (NS) SARS-CoV-2 RNA (OANH) (NEGATIVE) 06/01/21 06/01/21 06/01/21 Range/Units 07:42 09:20 09:28 WBC (3.0-10.3) x10-3/uL RBC (3.60-5.20) x10(6)uL Hgb (11.4-15.5) g/dL Hct (34.2-48.2) % MCV (76.7-100.5) fL MCH (23.9-33.9) pg MCHC (31.9-34.8) g/dL RDW (12.3-16.5) % Plt Count (151-488) x10(3)uL MPV (7.1-12.4) fL Neut % (Auto) (30.8-76.2) % Lymph % (Auto) (18.4-52.1) % [place] % (Auto) (4.4-15.7) % Eos % (Auto) (0.6-8.1) % Baso % (Auto) (0.2-1.5) % Neut # (Auto) (1.5-6.3) x10-3/uL Lymph # (Auto) (1.0-4.4) x10-3/uL [place] # (Auto) (0.3-1.0) x10-3/uL Eos # (Auto) (0.0-0.8) x10-3/uL Baso # (Auto) (0.0-0.1) x10-3/uL PT (9.0-11.1) sec INR (1.00-1.24) Sodium (135-145) mmol/L Potassium (3.5-5.3) mmol/L Chloride (100-110) mmol/L Carbon Dioxide (21-32) mmol/L BUN (7-18) mg/dL Creatinine (0.55-1.02) mg/dL Est Cr Clr Drug Dosing Estimated GFR (MDRD) (>60) BUN/Creatinine Ratio (9-20) Glucose (80-116) mg/dL Calcium (8.6-10.2) mg/dL Total Bilirubin (0.1-1.3) mg/dL AST (5-25) IU/L ALT (12-36) U/L Alkaline Phosphatase (56-112) IU/L Total Protein (6.0-8.0) g/dL Albumin (3.5-5.2) g/dL Globulin g/dL Albumin/Globulin Ratio Amylase (25-115) U/L Lipase 107 (73-393) U/L Urine Color Yellow (YELLOW) Urine Appearance Slightly cloudy (CLEAR) Urine pH 6.0 (5.0-6.5) Ur Specific [place] 1.015 (1.010-1.025) Urine Protein Negative (NEGATIVE) mg/dL Urine Glucose (UA) Normal (NORMAL) mg/dL Urine Ketones Negative (NEGATIVE) mg/dL Urine Occult Blood Moderate H (NEGATIVE) Urine Nitrite Negative (NEGATIVE) Urine Bilirubin Negative (NEGATIVE) Urine Urobilinogen Normal (NEGATIVE) mg/dL Ur Leukocyte Esterase Negative (NEGATIVE) U Hyaline Cast (Auto) Occasional H (NS) Urine RBC 0-5 (0-5) Urine WBC 0-5 (0-5) Ur Squamous Epith Cells Few H (NS,R,O) Urine Mucus Moderate H (NS) SARS-CoV-2 RNA (OANH) Negative (NEGATIVE) Meds: Medications Discontinued Medications Generic Name Dose Route Start Last Admin Trade Name Freq PRN Reason Stop Dose Admin Sodium Chloride 1,000 mls @ 999 mls/hr 06/01/21 07:32 06/01/21 07:51 Normal Saline IV 06/01/21 08:32 999 mls/hr .BOLUS ONE Administration Iopamidol 75 ml 06/01/21 09:08 06/01/21 09:20 Iopamidol 755 Mg/Ml 75 Ml Bottle IV 06/01/21 09:09 75 ml ASDIRECTED ONE Administration Morphine Sulfate 2 mg 06/01/21 07:33 06/01/21 07:49 Morphine 2 Mg/Ml Syringe IVPUSH 06/01/21 07:34 2 mg ONETIME ONE Administration Ondansetron HCl 4 mg 06/01/21 07:31 06/01/21 07:50 Ondansetron 4 Mg/2 Ml Sdv IVPUSH 06/01/21 07:32 4 mg ONETIME ONE Administration Pantoprazole Sodium 80 mg 06/01/21 07:33 06/01/21 07:50 Pantoprazole 40 Mg Vial IVPUSH 06/01/21 07:34 80 mg .BOLUS ONE Administration Sodium Chloride 10 ml 06/01/21 07:33 06/01/21 07:45 Sodium Chloride 0.9% 10 Ml Syringe FLUSH 10 ml ASDIRECTED PRN Administration Keep Vein Open Departure - Departure Time of Disposition: 10:30 Disposition: Home, Self-Care 01 Condition: Good Clinical Impression: Gastritis, GERD with apnea - Discharge Information Prescriptions: Pantoprazole Sodium [Protonix] 40 mg PO DAILY #30 tablet. Ondansetron [Zofran ODT] 4 mg PO Q4H PRN #5 tab.dis PRN Reason: Nausea Instructions: Gastritis, Adult, [id number], Food Choices for Gastroesophageal Reflux Disease, Child, [id number] Referrals: PCP,None [Primary Care Provider] - Forms: ED Department Discharge Additional Instructions: Please read discharge instructions on GERD and Gastritis Quit drinking alcohol, it's causing you to have inflammation of your stomach and possible peptic ulcer Take protonix 40 mg once daily Zofran ODT 4 mg every 4 hours as needed for nausea Follow up with your doctor this week so you can be referred for an upper endoscopy(EGD) to check if you have an ulcer in your esophagus and stomach Sepsis Event Note (ED) - Evaluation Sepsis Screening Result: No Definite Risk - My Orders Last 24 Hours: My Active Orders 06/01/21 07:33 Peripheral IV Insertion Adult [OM.PC] Routine 06/01/21 08:40 Abdomen Pelvis w Cont [CT] Stat - Assessment/Plan Last 24 Hours: My Active Orders 06/01/21 07:33 Peripheral IV Insertion Adult [OM.PC] Routine 06/01/21 08:40 Abdomen Pelvis w Cont [CT] Stat
[2021-06-01 13:40] VITALS: BP 135/74; PULSE 82
== END 2021-06-01 10:40 | disposition home or self-care (01) ==
LOC: FB.ED 07:15
DX: K21.9 Gastro-esophageal reflux disease without esophagitis (principal); R06.81 Apnea, not elsewhere classified; K29.70 Gastritis, unspecified, without bleeding; Z88.2 Allergy status to sulfonamides; Z20.822 Contact with and (suspected) exposure to COVID-19
CPT/HCPCS: 36415; 74177; 80053; 81001; 82150; 83690; 85025; 85610; 87635; 96374; 96375; 99284; C9113; J2270; J2405; J7030; Q9967; U0002

== ENCOUNTER 2021-06-30 01:08 | Emergency (ER) | payer SELFPAY | END 2021-06-30 01:25 | disposition left against medical advice (07) | LOC: FB.ED 01:08 | DX: Z53.21 Procedure and treatment not carried out due to patient leaving prior to being seen by health care provider (principal) ==

== ENCOUNTER 2024-02-15 20:00 | Emergency (ER) | payer BC, MEDICAID, OTHER ==
[2024-02-15] MEDS: Diphtheria,Pertussis(Acell),Tetanus Vaccine 0.5 ML Syringe IM ONE (20:49)
[2024-02-15] MEDS: Amoxicillin/Clavulanate K 875-125 MG Tab PO ONE (20:49)
[2024-02-15 22:43] VITALS: BP 115/78; PULSE 78
== END 2024-02-15 22:40 | disposition home or self-care (01) ==
LOC: FB.ED 20:00
DX: S61.250A Open bite of right index finger without damage to nail, initial encounter (principal); Z88.2 Allergy status to sulfonamides; Z79.899 Other long term (current) drug therapy; Z86.19 Personal history of other infectious and parasitic diseases; Z90.49 Acquired absence of other specified parts of digestive tract; Z23 Encounter for immunization; W54.0XXA Bitten by dog, initial encounter
CPT/HCPCS: 12001; 90471; 90715; 99283; 99283-25; A9270-GY